=== PATIENT | female | born 1950 | race Two or more races ===

== ENCOUNTER → 2017-04-02 | Outpatient (CLI) | payer MEDICARE, MEDICAID ==
[~2017-04-02] MED LIST: CONTRAST GIVEN MC
[2017-04-02 11:03] LABS: ANION GAP 9 (6-14); BLOOD UREA NITROGEN 9 mg/dL (7-20); CALCIUM 9.4 mg/dL (8.5-10.1); CARBON DIOXIDE 28 mmol/L (21-32); CHLORIDE 103 mmol/L (98-107); CREATININE 0.9 mg/dL (0.6-1.0); GFR 62.3; GLUCOSE 95 mg/dL (70-99); POTASSIUM 3.8 mmol/L (3.5-5.1); SODIUM 140 mmol/L (136-145)
[2017-04-02] MEDS: IOHEXOL 300 MG/ML 100ML VIAL. IV ×2 (11:34)
== END | disposition home or self-care (01) ==
LOC: CT 10:33
DX: I70.0 Atherosclerosis of aorta (principal); K80.20 Calculus of gallbladder without cholecystitis without obstruction; I10 Essential (primary) hypertension; E11.9 Type 2 diabetes mellitus without complications; R91.8 Other nonspecific abnormal finding of lung field
CPT/HCPCS: 36415; 71260; 80048

== ENCOUNTER 2018-02-24 19:50 | Emergency (ER) | payer MEDICARE, OTHER ==
[~2018-02-24] VITALS: Ht 165.1 cm; Wt 68.9 kg
[2018-02-24 20:00] VITALS: BP 157/67
[2018-02-24] MEDS: DEXAMETHASONE SOD PHOS 20 MG/5 ML VIAL. PO ONE (20:26)
[2018-02-24] MEDS ORDERED: CEPH-264 PO (20:48)
--- NOTE | 2018-02-24 20:49 | PHYS DOC ---
Past Medical History Past Medical History: Hypertension Past Surgical History: No Surgical History Alcohol Use: None Drug Use: None Adult General Chief Complaint Chief Complaint: FLU SYMPTOM HPI HPI Patient is a 67 year old [f__sex] who presents with [] Review of Systems Review of Systems Constitutional: Denies fever or chills [] Eyes: Denies change in visual acuity, redness, or eye pain [] HENT: Denies nasal congestion or sore throat [] Respiratory: Denies cough or shortness of breath [] Cardiovascular: No additional information not addressed in HPI [] GI: Denies abdominal pain, nausea, vomiting, bloody stools or diarrhea [] : Denies dysuria or hematuria [] Musculoskeletal: Denies back pain or joint pain [] Integument: Denies rash or skin lesions [] Neurologic: Denies headache, focal weakness or sensory changes [] Endocrine: Denies polyuria or polydipsia [] All other systems were reviewed and found to be within normal limits, except as documented in this note. Current Medications Current Medications Current Medications Medications (Trade) Dose Ordered Sig/Shaneka Start Time Stop Time Status Last Admin Dose Admin Dexamethasone Sodium Phosphate (Decadron) 10 mg 1X ONCE 02/24/18 20:15 02/24/18 20:16 DC 02/24/18 20:26 10 MG Allergies Allergies Allergies Coded Allergies Type Severity Reaction Last Updated Verified No Known Drug Allergies 07/08/14 No Physical Exam Physical Exam Constitutional: Well developed, well nourished, no acute distress, non-toxic appearance. [] HENT: Normocephalic, atraumatic, bilateral external ears normal, oropharynx moist, no oral exudates, nose normal. [] Eyes: PERRLA, EOMI, conjunctiva normal, no discharge. [] Neck: Normal range of motion, no tenderness, supple, no stridor. [] Cardiovascular:Heart rate regular rhythm, no murmur [] Lungs & Thorax: Bilateral breath sounds clear to auscultation [] Abdomen: Bowel sounds normal, soft, no tenderness, no masses, no pulsatile masses. [] Skin: Warm, dry, no erythema, no rash. [] Back: No tenderness, no CVA tenderness. [] Extremities: No tenderness, no cyanosis, no clubbing, ROM intact, no edema. [] Neurologic: Alert and oriented X 3, normal motor function, normal sensory function, no focal deficits noted. [] Psychologic: Affect normal, judgement normal, mood normal. [] Current Patient Data Vital Signs Vital Signs Date Time Temp Pulse Resp B/P (MAP) Pulse Ox O2 Delivery O2 Flow Rate FiO2 02/24/18 20:00 98.6 103 20 157/67 (97) 96 Room Air 98.6 EKG EKG [] Radiology/Procedures Radiology/Procedures [] Course & Med Decision Making Course & Med Decision Making Pertinent Labs and Imaging studies reviewed. (See chart for details) [] Dragon Disclaimer Dragon Disclaimer This electronic medical record was generated, in whole or in part, using a voice recognition dictation system. Departure Departure Impression: Primary Impression: Pharyngitis Disposition: HOME, SELF-CARE Condition: STABLE Referrals: CASSANDRA BILLS MD (PCP) Patient Instructions: Viral and Bacterial Pharyngitis Additional Instructions: Take the medication as directed. Continue to take ibuprofen or Tylenol for pain or fever. Follow-up with your primary care provider in 4 days if not improving or return to the emergency department if worsening. Scripts Cephalexin (KEFLEX) 500 Mg Capsule 1 CAP PO TID for pharyngitis, #30 CAP Prov: BEATRIS MENDOZA APRN 02/24/18 BEATRIS MENDOZA APRN Feb 24, 2018 20:49
== END 2018-02-24 20:50 | disposition home or self-care (01) ==
LOC: ER 19:50
DX: J02.9 Acute pharyngitis, unspecified (principal); I10 Essential (primary) hypertension
CPT/HCPCS: 87070; 87880; 99283; J1100

== ENCOUNTER → 2018-11-17 | Outpatient (CLI) | payer MEDICARE, MEDICAID ==
[~2018-11-17] MED LIST changes: +CEPH-264 PO; -CONTRAST GIVEN MC
--- NOTE | 2018-11-17 14:06 | RAD ---
DATE: 11/17/2018 EXAM: MAMMO NABEEL SCREENING BILATERAL HISTORY: Asymptomatic screening mammogram. COMPARISON: 12/12/2016, 08/02/2015 This study was interpreted with the benefit of Computerized Aided Detection (CAD). Breast Density: SCATTERED The breast parenchyma shows scattered fibroglandular densities. Breast parenchyma level B. FINDINGS: Bilateral CC and MLO views of the breasts were performed. Bilateral breast tomosynthesis was performed in CC and MLO projections. Right breast: There are no suspicious microcalcifications, masses or areas of architectural distortion. Left breast: There are no suspicious microcalcifications, masses or areas of architectural distortion. Findings are stable from prior mammogram. IMPRESSION: Negative bilateral mammogram. BI-RADS CATEGORY: 1 NEGATIVE RECOMMENDED FOLLOW-UP: 12M 12 MONTH FOLLOW-UP PQRS compliance statement: Patient information was entered into a reminder system with a target due date 11/18/2019 for the next mammogram. Mammography is a sensitive method for finding small breast cancers, but it does not detect them all and is not a substitute for careful clinical examination. A negative mammogram does not negate a clinically suspicious finding and should not result in delay in biopsying a clinically suspicious abnormality. "Our facility is accredited by the [employer] Mammography Program."
== END | disposition home or self-care (01) ==
LOC: MAMMO 09:54
PROVIDERS: ATTEND Family Medicine
DX: Z12.31 Encounter for screening mammogram for malignant neoplasm of breast (principal); N64.89 Other specified disorders of breast
CPT/HCPCS: 77063; 77067

== ENCOUNTER 2019-06-26 18:47 | Emergency (ER) | payer MEDICARE, OTHER ==
[~2019-06-26] VITALS: Ht 160 cm; Wt 71.8 kg
[2019-06-26] MEDS ORDERED: IV NORMAL SALINE 1000ML BAG 1,000 ML IV ONE (20:15)
[2019-06-26 20:31] LABS: BASO % 0 % (0-3); EOS % 1 % (0-3); HEMATOCRIT 39.1 % (36.0-47.0); HEMOGLOBIN 13.1 g/dL (12.0-15.5); LYMPH # 2.1 x10^3/uL (1.0-4.8); LYMPH % 28 % (24-48); MEAN CORPUSCULAR HEMOGLOBIN 29 pg (25-35); MEAN CORPUSCULAR HGB CONC 34 g/dL (31-37); MEAN CORPUSCULAR VOLUME 86 fL (79-100); MONO # 0.9 x10^3/uL (0.0-1.1); MONO % 13 % (0-9); NEUT # 4.3 x10^3/uL (1.8-7.7); NEUT % 58 % (31-73); PLATELET COUNT 254 x10^3/uL (140-400); RED BLOOD COUNT 4.57 x10^6/uL (3.50-5.40); RED CELL DISTRIBUTION WIDTH 13.1 % (11.5-14.5); WHITE BLOOD COUNT 7.4 x10^3/uL (4.0-11.0)
[2019-06-26 20:32] LABS: BILIRUBIN,URINE NEGATIVE (NEG); CLARITY,URINE CLEAR; COLOR,URINE YELLOW; NITRITE,URINE NEGATIVE (NEG); PROTEIN,URINE NEGATIVE (NEG-TRACE); UROBILINOGEN,URINE 0.2 mg/dL (0.2 mg/dL)
[2019-06-26 20:37] LABS: RBC,URINE 0 /HPF (0-2); WBC,URINE OCC /HPF (0-4)
[2019-06-26 20:38] LABS: BACTERIA,URINE FEW /HPF (0-FEW); SQUAMOUS EPITHELIAL CELL,UR FEW /LPF
[2019-06-26 20:41] LABS: PROTHROMBIN TIME PATIENT 12.3 SEC (11.7-14.0)
[2019-06-26 20:42] LABS: GFR 54.7; POTASSIUM 4.4 mmol/L (3.5-5.1)
[2019-06-26] MEDS ORDERED: IOHEXOL 300 MG/ML 100ML VIAL. IV ONE (20:45)
[2019-06-26] MEDS ORDERED: CONTRAST GIVEN. MC PRN (20:45)
[2019-06-26 20:48] LABS: ALBUMIN 3.3 g/dL (3.4-5.0); ALBUMIN/GLOBULIN RATIO 0.7 (1.0-1.7); TOTAL BILIRUBIN 0.3 mg/dL (0.2-1.0); TOTAL PROTEIN 7.8 g/dL (6.4-8.2)
[2019-06-26 20:55] LABS: CREATINE KINASE 43 U/L (26-192)
--- NOTE | 2019-06-26 21:18 | RAD ---
EXAM: CT Head without IV contrast INDICATION: Weakness blurred vision and dizziness for 5 days. TECHNIQUE: Multi-detector row CT images were obtained of the head without the use of IV contrast. All CT scans performed at this facility utilize dose optimization techniques as appropriate to the exam, including the following: Automated exposure control and adjustment of the mA and/or KV according to patient size (this includes techniques or standardized protocols for targeted exams where dose is indication/reason for exam). COMPARISON: None FINDINGS: BRAIN PARENCHYMA: No evidence of acute intraparenchymal hemorrhage or infarct. No abnormal parenchymal density or mass. VENTRICLES & EXTRA-AXIAL SPACES: Ventricles are within normal limits. Basilar cisterns are patent. No pathologic extra-axial fluid collection or mass. ORBITS: Orbital contents are unremarkable. SINUSES: Visualized paranasal sinuses and mastoid air cells are clear. OSSEOUS & SOFT TISSUES: Calvarium and skull base are intact. IMPRESSION: No acute intracranial pathology. EXAM: CT Abdomen and Pelvis with IV contrast INDICATION: Pain to lower abdomen TECHNIQUE: Multi-detector row CT images were acquired from the lung bases through the abdomen and pelvis with the use of IV contrast. Sagittal and coronal images were acquired from the transaxial data. All CT scans performed at this facility utilize dose optimization techniques as appropriate to the exam, including the following: Automated exposure control and adjustment of the mA and/or KV according to patient size (this includes techniques or standardized protocols for targeted exams where dose is indication/reason for exam). IV CONTRAST: Administered ORAL CONTRAST: Not administered COMPARISON: Chest CT with IV contrast of 04/02/2017. FINDINGS: LOWER CHEST: Small hiatal hernia LIVER: Unremarkable BILIARY SYSTEM: Gallbladder again shows layering calcifications.. Bile ducts are not dilated. PANCREAS: Unremarkable SPLEEN: Unremarkable ADRENALS: Unremarkable KIDNEYS & URETERS: Unremarkable BLADDER: Unremarkable REPRODUCTIVE ORGANS: A 3 cm right adnexal cyst is noted. Otherwise the reproductive organs are unremarkable. GASTROINTESTINAL: Large bowel shows extensive colonic diverticulosis most conspicuous in the sigmoid colon where apparent wall thickening and pericolonic mesenteric hyperemia is noted. The appendix is normal. MESENTERY/PERITONEUM/RETROPERITONEUM: There is some soft tissue stranding around the draining veins of the rectosigmoid colon extending up to the mid abdomen. VASCULAR: Abdominal aortic calcifications. No aneurysm. LYMPH NODES: No adenopathy OSSEOUS & SOFT TISSUES: Unremarkable IMPRESSION: Findings are suspicious for acute diverticulitis with associated phlebitis of the draining veins of the rectosigmoid colon. No bowel perforation or abscess formation is noted. Cannot exclude infectious or inflammatory thrombophlebitis as a possible complication of acute diverticulitis. Electronically signed by: Shaista Brown MD (06/26/2019 9:15 PM) [facility] [place]
[2019-06-26] MEDS ORDERED: CIPR500T94 PO (22:21)
[2019-06-26] MEDS ORDERED: ONDA4TAB12 PO (22:21)
[2019-06-26] MEDS ORDERED: METR500T PO (22:21)
--- NOTE | 2019-06-26 22:21 | PHYS DOC ---
Past Medical History Past Medical History: Arthritis, High Cholesterol, Hypertension, Hypothyroid Additional Past Medical Histor: PREDIABETES, "HEART PROBLEMS" Past Surgical History: No Surgical History Smoking Status: Former Smoker Alcohol Use: None Drug Use: None General Adult EDM: Chief Complaint: ABDOMINAL PAIN HPI: HPI: Patient is a 69 year old [f__sex] who presents with [] Review of Systems: Review of Systems: Constitutional: Denies fever or chills. [] Eyes: Denies change in visual acuity. [] HENT: Denies nasal congestion or sore throat. [] Respiratory: Denies cough or shortness of breath. [] Cardiovascular: Denies chest pain or edema. [] GI: Denies abdominal pain, nausea, vomiting, bloody stools or diarrhea. [] : Denies dysuria. [] Musculoskeletal: Denies back pain or joint pain. [] Integument: Denies rash. [] Neurologic: Denies headache, focal weakness or sensory changes. [] Endocrine: Denies polyuria or polydipsia. [] Lymphatic: Denies swollen glands. [] Psychiatric: Denies depression or anxiety. [] Heart Score: Risk Factors: Risk Factors: DM, Current or recent (<one month) smoker, HTN, HLP, family history of CAD, obesity. Risk Scores: Score 0 - 3: 2.5% MACE over next 6 weeks - Discharge Home Score 4 - 6: 20.3% MACE over next 6 weeks - Admit for Clinical Observation Score 7 - 10: 72.7% MACE over next 6 weeks - Early Invasive Strategies Current Medications: Current Medications Medications (Trade) Dose Ordered Sig/Shaneka Start Time Stop Time Status Last Admin Dose Admin Info (CONTRAST GIVEN -- Rx MONITORING) 1 each PRN DAILY PRN 06/26/19 20:45 06/28/19 20:44 Iohexol (Omnipaque 300 Mg/ml) 75 ml 1X ONCE 06/26/19 20:45 06/26/19 20:46 DC 06/26/19 20:53 75 ML Sodium Chloride 1,000 ml @ 1,000 mls/hr 1X ONCE 06/26/19 20:15 06/26/19 21:14 DC 06/26/19 21:06 1,000 MLS/HR Allergies: Allergies: Allergies Coded Allergies Type Severity Reaction Last Updated Verified No Known Drug Allergies 07/08/14 No Physical Exam: PE: Constitutional: Well developed, well nourished, no acute distress, non-toxic appearance. [] HENT: Normocephalic, atraumatic, bilateral external ears normal, oropharynx moist, no oral exudates, nose normal. [] Eyes: PERRLA, EOMI, conjunctiva normal, no discharge. [] Neck: Normal range of motion, no tenderness, supple, no stridor. [] Cardiovascular:Heart rate regular rhythm, no murmur [] Lungs & Thorax: Bilateral breath sounds clear to auscultation [] Abdomen: Bowel sounds normal, soft, no tenderness, no masses, no pulsatile masses. [] Skin: Warm, dry, no erythema, no rash. [] Back: No tenderness, no CVA tenderness. [] Extremities: No tenderness, no cyanosis, no clubbing, ROM intact, no edema. [] Neurologic: Alert and oriented X 3, normal motor function, normal sensory function, no focal deficits noted. [] Psychologic: Affect normal, judgement normal, mood normal. [] Current Patient Data: Labs: Laboratory Tests Test 06/26/19 19:22 06/26/19 19:50 Urine Collection Type Unknown Urine Color Yellow Urine Clarity Clear Urine pH 6.0 (<5.0-8.0) Urine Specific [place] 1.010 (1.000-1.030) Urine Protein Negative mg/dL (NEG-TRACE) Urine Glucose (UA) Negative mg/dL (NEG) Urine Ketones (Stick) Negative mg/dL (NEG) Urine Blood Trace (NEG) Urine Nitrite Negative (NEG) Urine Bilirubin Negative (NEG) Urine Urobilinogen Dipstick 0.2 mg/dL (0.2 mg/dL) Urine Leukocyte Esterase Negative (NEG) Urine RBC 0 /HPF (0-2) Urine WBC Occ /HPF (0-4) Urine Squamous Epithelial Cells Few /LPF Urine Bacteria Few /HPF (0-FEW) White Blood Count 7.4 x10^3/uL (4.0-11.0) Red Blood Count 4.57 x10^6/uL (3.50-5.40) Hemoglobin 13.1 g/dL (12.0-15.5) Hematocrit 39.1 % (36.0-47.0) Mean Corpuscular Volume 86 fL (79-100) Mean Corpuscular Hemoglobin 29 pg (25-35) Mean Corpuscular Hemoglobin Concent 34 g/dL (31-37) Red Cell Distribution Width 13.1 % (11.5-14.5) Platelet Count 254 x10^3/uL (140-400) Neutrophils (%) (Auto) 58 % (31-73) Lymphocytes (%) (Auto) 28 % (24-48) Monocytes (%) (Auto) 13 % (0-9) H Eosinophils (%) (Auto) 1 % (0-3) Basophils (%) (Auto) 0 % (0-3) Neutrophils # (Auto) 4.3 x10^3/uL (1.8-7.7) Lymphocytes # (Auto) 2.1 x10^3/uL (1.0-4.8) Monocytes # (Auto) 0.9 x10^3/uL (0.0-1.1) Eosinophils # (Auto) 0.0 x10^3/uL (0.0-0.7) Basophils # (Auto) 0.0 x10^3/uL (0.0-0.2) Prothrombin Time 12.3 SEC (11.7-14.0) Prothrombin Time INR 1.0 (0.8-1.1) Activated Partial Thromboplast Time 24 SEC (24-38) Sodium Level 138 mmol/L (136-145) Potassium Level 4.4 mmol/L (3.5-5.1) Chloride Level 102 mmol/L (98-107) Carbon Dioxide Level 28 mmol/L (21-32) Anion Gap 8 (6-14) Blood Urea Nitrogen 13 mg/dL (7-20) Creatinine 1.0 mg/dL (0.6-1.0) Estimated GFR (Cockcroft-Gault) 54.7 BUN/Creatinine Ratio 13 (6-20) Glucose Level 116 mg/dL (70-99) H Calcium Level 9.0 mg/dL (8.5-10.1) Total Bilirubin 0.3 mg/dL (0.2-1.0) Aspartate Amino Transferase (AST) 43 U/L (15-37) H Alanine Aminotransferase (ALT) 58 U/L (14-59) Alkaline Phosphatase 177 U/L (46-116) H Creatine Kinase 43 U/L (26-192) Creatine Kinase MB (Mass) 1.1 ng/mL (0.0-3.6) Creatine Kinase MB Relative Index % (0-4) Troponin I Quantitative < 0.017 ng/mL (0.000-0.055) Total Protein 7.8 g/dL (6.4-8.2) Albumin 3.3 g/dL (3.4-5.0) L Albumin/Globulin Ratio 0.7 (1.0-1.7) L Lipase 250 U/L (73-393) Laboratory Tests 06/26/19 19:50 Laboratory Tests 06/26/19 19:50 Vital Signs: Vital Signs Date Time Temp Pulse Resp B/P (MAP) Pulse Ox O2 Delivery O2 Flow Rate FiO2 06/26/19 19:39 98.0 80 20 160/74 (102) 98 Room Air 98.0 EKG: EKG: @1956 NSR at 76bpm, NO ST elevation, QRS 70ms, QT/QTc 368/413ms Radiology/Procedures: Radiology/Procedures: [] Course & Med Decision Making: Course & Med Decision Making Pertinent Labs and Imaging studies reviewed. (See chart for details) [] Dragon Disclaimer: Dragon Disclaimer: This electronic medical record was generated, in whole or in part, using a voice recognition dictation system. Departure Departure Impression: Primary Impression: Acute diverticulitis Additional Impression: Weakness Disposition: 01 HOME, SELF-CARE Condition: STABLE Referrals: CASSANDRA BILLS MD (PCP) AVILA LEE MD Patient Instructions: Diverticulitis, Cyza-bu-Hput, Weakness, Qnrq-al-Vydu Scripts Metronidazole (FLAGYL) 500 Mg Tablet 500 MG PO TID for 7 Days, #21 TAB Prov: CASSANDRA ISABEL DO 06/26/19 Ciprofloxacin Hcl (CIPRO) 500 Mg Tablet 1 TAB PO BID for 7 Days, #14 TAB Prov: CASSANDRA ISABEL DO 06/26/19 Ondansetron (ONDANSETRON ODT) 4 Mg Tab.rapdis 1 TAB PO PRN Q6-8HRS PRN for NAUSEA, #16 TAB Prov: CASSANDRA ISABEL DO 06/26/19 CASSANDRA ISABEL DO June 26, 2019 22:21
[2019-06-26 22:30] VITALS: BP 175/77
[2019-06-26] MEDS ORDERED: metroNIDAZOLE 500 MG TABLET PO ONE (22:30)
[2019-06-26] MEDS ORDERED: CIPROFLOXACIN HCL 250 MG TABLET. PO ONE (22:30)
--- NOTE | 2019-06-27 06:54 | EKG ---
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
== END 2019-06-26 22:37 | disposition home or self-care (01) ==
LOC: ER 18:47
DX: K57.92 Diverticulitis of intestine, part unspecified, without perforation or abscess without bleeding (principal); R53.1 Weakness; R51 Headache; E78.00 Pure hypercholesterolemia, unspecified; I10 Essential (primary) hypertension; E03.9 Hypothyroidism, unspecified; Z87.891 Personal history of nicotine dependence
CPT/HCPCS: 36415; 70450; 74177; 80053; 81001; 82553; 83690; 84484; 85025; 85610; 85730; 93005; 99285; J7030; Q9967

== ENCOUNTER → 2019-08-10 | Outpatient (CLI) | payer MEDICARE, OTHER ==
[2019-07-16 11:27] VITALS: BP 115/70
[~2019-08-10] MED LIST changes: +AMOX1TAB11 PO; +CIPR500T94 PO; +LACT1CAP19 PO; +LEVO100T5 PO; +METR500T PO; +ONDA4TAB12 PO
== END | disposition home or self-care (01) ==
LOC: LAB 12:33
PROVIDERS: ATTEND Internal Medicine Gastroenterology
DX: Z01.818 Encounter for other preprocedural examination (principal); Z11.59 Encounter for screening for other viral diseases
CPT/HCPCS: U0003-CS

== ENCOUNTER → 2019-08-15 | Day surgery (SDC) | payer MEDICARE, OTHER ==
[~2019-08-15] MED LIST changes: +IV RINGERS,LACTATED 1000ML 1,000 ML IV SCH
--- NOTE | 2019-08-15 14:35 | PDOC4 ---
PROCEDURE Procedure Colonoscopy/EGD Indications: Chronic heartburn, r/o Terrell's. Screening, no prior; known diverticulosis. Meds; per anesthesia Findings: ALBERTO: normal --Scope advanced ot cecum. Mucosa normal. Numerous diverticula from sigmoid to descending. No polyps, masses, etc. Narrow rectum; could not retroflex, but adequate view of lowermost rectum could be obtained w/o. Small internal hemorrhoids noted. E--Healed, baseline grade indeterminate, reflux at 37 cm. G--Scattered erosions, antrum/prepyloric. Biopsies done. D--Normal to second portion. Daquan. well. IMP: Diverticulosis Internal hemorrhoids. Healed reflux. Antral erosions, non-specific. REC: Resume diet and meds as pre-procedure. Await biopsies. F/u with me in 2 weeks. CASSANDRA WORLEY MD Aug 15, 2019 14:35
[2019-08-15 15:00] VITALS: BP 144/65
--- NOTE | 2019-08-17 17:07 | PATHOLOGY ---
[facility] Accession Number: [id number] . 01 Material submitted: . stomach - ANTRUM BIOPSY . 01 Clinical history: . GERD, diverticulitis hx . 02 Diagnosis: Gastric biopsies, antrum: - Active chronic gastritis, moderate, with Helicobacter organisms identified. (JPM:giuliana; 08/17/2019) S 08/17/2019 1335 Local . 02 Comment: Sections of the gastric antral biopsy show congestion and moderate active chronic inflammation. A properly controlled immunoperoxidase stain for Helicobacter reveals numerous Helicobacter organisms. There is no evidence of malignancy. (JPM:giuliana; 08/17/2019) . . Special stain performed: Immunoperoxidase stain for Helicobacter . 02 Electronically signed: . Misael Carter MD, Pathologist NPI- [id number] . 01 Gross description: . The specimen is received in formalin, labeled "Laly, Stella, BX antrum" consists of 2 fragments of pink-renee tissue measuring 0.3 x 0.3 cm and 0.4 x 0.2 cm which are entirely submitted in A1. (SDY; 08/16/2019) SYU/SYU 08/16/2019 1703 Local . 02 Pathologist provided ICD-10: K29.50, B96.81 . 02 CPT . 746208, [id number] Specimen Comment: A courtesy copy of this report has been sent to [phone], [phone] Specimen Comment: [id number] Specimen Comment: Report sent to / DR BILLS Performed at: 01 [facility] [address], [place], [place] [id number] MD Alec Campa MD Phone: [phone] Performed at: 02 [facility] [address] [place], [place] [id number] MD Misael Carter MD Phone: [phone]
== END | disposition home or self-care (01) ==
LOC: ENDOS 13:25
PROVIDERS: ATTEND Internal Medicine Gastroenterology
DX: Z12.11 Encounter for screening for malignant neoplasm of colon (principal); K21.0 Gastro-esophageal reflux disease with esophagitis; K31.9 Disease of stomach and duodenum, unspecified; I10 Essential (primary) hypertension; E78.00 Pure hypercholesterolemia, unspecified; F41.9 Anxiety disorder, unspecified; F32.9 Major depressive disorder, single episode, unspecified; E78.5 Hyperlipidemia, unspecified; K64.8 Other hemorrhoids; K57.30 Diverticulosis of large intestine without perforation or abscess without bleeding; Z87.891 Personal history of nicotine dependence
CPT/HCPCS: 43239; 88305; 88342; G0121; 45378

== ENCOUNTER → 2019-10-26 | Outpatient (CLI) | payer MEDICARE, OTHER ==
[2019-08-15 15:00] VITALS: BP 144/65
[~2019-10-26] MED LIST changes: +DEXAMETHASONE SOD PHOS 4 MG/ML VIAL ONE; -IV RINGERS,LACTATED 1000ML 1,000 ML IV SCH; +LIDOCAINE 2% PF 5 ML VIAL. ONE; +ONDANSETRON PF 4 MG/2 ML VIAL. ONE; +PROPOFOL 10 MG/ML (20ML) VIAL. IV ONE; +SEVOFLURANE 61 TO 120 MINUTES. IH ONE
--- NOTE | 2019-10-26 11:13 | RAD ---
Examination: 1. Renal ultrasound, complete. 2. Pelvic ultrasound INDICATION: Renal cyst. Right ovarian cyst seen on CT scan. COMPARISON: Abdomen pelvis CT with IV contrast 07/09/2019 TECHNIQUE: Ultrasound of the pelvis was performed transabdominally using grayscale and spectral Doppler imaging using the distended urinary bladder as an acoustic window. Ultrasound of the kidneys was performed transabdominally and included sonographic imaging of the urinary bladder as well. FINDINGS: Renal ultrasound: The right kidney measures 9.9 x 3.0 x 3.4 cm and demonstrates no contour deformity, shadowing stones, or hydronephrosis. Normal blood flow on color Doppler imaging. Left kidney measures 10.4 x 4.3 x 3.6 cm and again demonstrates mild left pelviectasis. No shadowing stones or hydronephrosis. Left renal contour is undulant, suggesting persistent lobulation. No masses identified. Normal blood flow on color Doppler imaging. The visualized urinary bladder is partially distended and shows no filling defects. Pelvic ultrasound: The uterus measures 6.2 x 3.5 x 2.4 cm. The endometrium measures 2 mm. The right ovary measures 4.1 x 3.7 x 2.9 cm and demonstrates normal blood flow. It contains a 2.8 x 2.3 x 2.2 cm cyst. The left ovary is not well seen. No pelvic free fluid or fluid collection. Distended urinary bladder is unremarkable. IMPRESSION: 1. Mild left renal pelviectasis. Otherwise unremarkable complete renal ultrasound. No renal cysts. 2. Persistent right ovarian cyst measuring 2.8 x 2.3 x 2.2 cm showing no complexity or interval change in size. Electronically signed by: Shaista Brown MD (10/26/2019 11:10 AM) [id number]
== END | disposition home or self-care (01) ==
LOC: US 09:11
PROVIDERS: ATTEND Family Medicine
DX: N83.291 Other ovarian cyst, right side (principal); N13.30 Unspecified hydronephrosis; N32.89 Other specified disorders of bladder; I73.9 Peripheral vascular disease, unspecified
CPT/HCPCS: 76770; 76856; J1100; J2405; J2704

== ENCOUNTER → 2019-10-26 | Outpatient (CLI) | payer MEDICARE, OTHER ==
[2019-08-15 15:00] VITALS: BP 144/65
[~2019-10-26] MED LIST changes: -DEXAMETHASONE SOD PHOS 4 MG/ML VIAL ONE; -LIDOCAINE 2% PF 5 ML VIAL. ONE; -ONDANSETRON PF 4 MG/2 ML VIAL. ONE; -PROPOFOL 10 MG/ML (20ML) VIAL. IV ONE; +REGADENOSON 0.4 MG/5 ML DISP.SYRIN. IV ONE; -SEVOFLURANE 61 TO 120 MINUTES. IH ONE
--- NOTE | 2019-10-26 11:54 | RAD ---
MR#: [id number] Date of Study: 10/26/2019 Ordering Physician: LEON ESTEBAN, Referring Physician: LEON ESTEBAN, Tech: Nevaeh Camarillo, DAISY, RVT, RTR APPROVED REPORT Patient Location: OUT-PATIENT Laterality:Bilateral Indications Occlusion and Stenosis of Bilateral Carotid Arteries Risk Factors Hypertension: Hyperlipidemia Doppler Spectral Velocity Analysis Right Left pCCA 93/13 cm/spCCA 110/19 cm/s mCCA 104/17 cm/smCCA 107/16 cm/s dCCA 79/20 cm/sdCCA 69/15 cm/s Bulb 78/14 cm/sBulb 58/15 cm/s ECA 136/14 cm/sECA 106/35 cm/s pICA 80/24 cm/spICA 63/18 cm/s Doyle 104/30 cm/smICA 106/34 cm/s dICA 115/37 cm/sdICA 81/35 cm/s Vert. 44/14 cm/sVert. 53/14 cm/s ICA/CCA 1.11ICA/CCA 0.96 Findings Grayscale images of the bilateral common carotid, external and internal carotid vessels reveals mild diffuse plaque. No significant grayscale obstruction is noted. Based on velocity criteria and spectral waveforms overall 0 to less than 50% stenosis in the internal carotid vessels bilaterally. Vertebral velocities are antegrade. Normal ICA to CCA ratios. Critical Notification Critical Value: No <Conclusion> 1. No significant carotid occlusive disease bilaterally Signed by : Leon Esteban, Electronically Approved : 10/26/2019 11:54:17
--- NOTE | 2019-10-26 11:57 | RAD ---
MR#: [id number] Date of Study: 10/26/2019 Ordering Physician: LEON ESTEBAN, Referring Physician: LEON ESTEBAN, Tech: Nevaeh Camarillo RDMS, RVT, RTR APPROVED REPORT Patient Location: OUT-PATIENT Exam Type: Ankle to Brachial Index Indications PAD Risk Factors History of PAD: Hypertension Hyperlipidemia Pressures/Indices RightABI LeftABI Brachial [id number] [id number] Ankle(PT) 150mmHgAnkle(PT) 96mmHg Ankle(DP) 142mmHgAnkle(DP) 146mmHg Critical Notification Critical Value: No <Conclusion> 1. Normal bilateral MIR. Signed by : Leon Esteban, Electronically Approved : 10/26/2019 11:56:39
--- NOTE | 2019-10-26 11:58 | RAD ---
MR#: [id number] Date of Study: 10/26/2019 Ordering Physician: LEON ESTEBAN, Referring Physician: LEON ESTEBAN, Tech: Nevaeh Camarillo, LARYMS, RVT, RTR APPROVED REPORT Patient Location: OUT-PATIENT Indications PAD Bilateral Leg Cramps Risk Factors Hypertension Hyperlipidemia VELOCITY AND DOPPLER WAVEFORM ANALYSIS RIGHT cm/secWaveformSeverity LEFT cm/secWaveform Severity pCFA 146.9pCFA 123.1 Prof Fem Art. 155.5Prof Fem Art. 83.5 Fem Art Prox. 87.0Fem Art Prox. 120.6 Fem Art Mid. 92.5Fem Art Mid. 85.1 Fem Art Dist. 108.3Fem Art Dist. 65.3 Pop Art(AK) 77.7Pop Art(AK) 76.8 TERMITE HELPER Prox. 59.8PTA Prox. 40.3 TERMITE HELPER Dist. 52.1PTA Dist. 15.0 Per Art Prox. 86.8Per Art Prox. 69.4 VAMSHI Prox. 47.6ATA Prox. 98.3 DPA 68DPA 95 Findings Grayscale images demonstrate mild diffuse plaque bilaterally. There are mostly biphasic waveforms th roughout except the distal left posterior tibial artery has severely diminished waveforms suggestive likely of moderate to severe diffuse disease. Otherwise there is three-vessel runoff bilaterally. N o focal high-grade obstruction evident above the knee. Critical Notification Critical Value: No <Conclusion> 1. No high-grade stenosis above the knee. Three-vessel runoff below the knee bilaterally with likel y severe diffuse disease involving the left posterior tibial artery. Signed by : Leon Esteban, Electronically Approved : 10/26/2019 11:58:06
--- NOTE | 2019-10-26 14:17 | RAD ---
MR#: [id number] Date of Study: 10/26/2019 Ordering Physician: LEON ESTEBAN, Referring Physician: AMBER ELAM Tech: JUANY Oseguera APPROVED REPORT Test Type: Exercise Stress Nurse/Tech: Renae Slater RN Test Indications: Dyspnea on exertion Cardiac History: Hypertension Medications: See Electronic Medical Record Medical History: See Electronic Medical Record Resting ECG: SR with PACs Resting Heart Rate: 95 bpm Resting Blood Pressure: 163/76mmHg Pretest Chest Pain: No chest pain Nurse/Tech Notes S1,S2 and lungs clear to ascultation. Consent: The procedure was explained to the patient in lay terms. Informed consent was witnessed. Goyo eout was entered into [employer]. History and Stress Test performed by JUANY Oseguera Stress Symptoms Dyspnea POST EXERCISE Reason for Termination: Reached target heart rate, Fatigue Target HR: Yes Max HR: 151 bpm 119% of Maximum Predicted HR: 126 bpm Exercise duration: 2:41 min:sec, 1 Stage Exercise capacity: 4.6METs Max Blood Pressure: 199/82mmHg Blood Pressure response to exercise: Normal blood pressure response during stress. Heart Rate response to exercise: WNL Chest Pain: No. Arrhythmia: Yes. PACs ST Change: No. INTERPRETATION Stress EKG Conclusion: Baseline EKG showed sinus rhythm. No ischemic changes at peak stress. No arr hythmias. Imaging Protocol IMAGE PROTOCOL: Rest Tc-99m/stress Tc-99m 1 day Rest: Stress: Viability: Radiopharm.Tc99m SnitbpanvVr67q Sestamibi Fohs43qSg 32mCi Duration 15min. 10min. Img Date 10/26/2019 10/26/2019 Inj-Img Ofoh74zxt. 60min. Rest Admin Site:IV - Right AntecubitalAdministrator:JUANY Oseguera Stress Admin Site: IV - Right AntecubitalAdministrator: RT Tali (R)(N) STRESS DATA End Diast. Vol.34.0mlAv. Heart Aoyg430.0bpm End Syst. Vol.2.0mlCO Index BSA0.0L/min Myocardial Mass80.0gEject. Tblnsqxn83.0% Stress Rates Pk. Fill Rate5.08EDV/secLVtime Pk. Fill 130.75msec Pk. Empty Rate7.45ESV/secLVtime Pk. Uqrsi925.19msec 1/3 Pk. Fill0.70EDV/sec Stress Scores Regional WT0.00Summed WT0.00 Regional WM0.00Summed WM0.00 Study quality was good. Left Ventricular size was Normal at Rest and Stress. Lung uptake was . Left Ventricular ejection fraction is >80%. The rest and stress images show normal perfusion, normal contraction and thickening. LV Perfusion 2 Perfusion Defect Location: anteriorposteriorbasal LV Perf. Quant 17 Seg. SSS0.00 17 Seg. SRS2.00 17 Seg. SDS0.00 Stress Defect Extent (% LAD)0.00Rest Defect Extent (% LAD)5.60Rev. Defect Extent (% LAD)0.00 Stress Defect Extent (% LCX) 0.00Rest Defect Extent (% LCX)0.00Rev. Defect Extent (% LCX)0.00 Stress Defect Extent (% RCA)0.00Rest Defect Extent (% RCA)0.00Rev. Defect Extent (% RCA)0.00 Stress Defect Extent (% MELISSA)0.00Rest Defect Extent (% MELISSA)3.30Rev. Defect Extent (% MELISSA)0.00 Conclusion 1. Treadmill exercise cardioisotope stress test did not show any evidence of ischemia or infarct. 2. Normal left ventricular systolic function with ejection fraction calculated at >80%. 3. Patient had good activity tolerance. Low risk for cardiac events. Signed by : Ken Eastman, Electronically Approved : 10/26/2019 14:16:59
--- NOTE | 2019-10-26 14:19 | CARD ---
MR#: [id number] Date of Study: 10/26/2019 Ordering Physician: LEON ESTEBAN, Referring Physician: LEON ESTEBAN, Tech: Daya Castanon [facility] APPROVED REPORT EXAM: Two-dimensional and M-mode echocardiogram with Doppler and color Doppler. Other Information Quality : Good INDICATION Dyspnea 2D DIMENSIONS Left Atrium(2D)3.1 (1.6-4.0cm)IVSd1.0 (0.7-1.1cm) Aortic Root(2D)2.8 (2.0-3.7cm)LVDd4.1 (3.9-5.9cm) LVOT Diameter2.0 (1.8-2.4cm)PWd1.0 (0.7-1.1cm) LVDs3.5 (2.5-4.0cm)FS (%) 30.0 % SV26.2 mlLVEF(%)60.0 (>50%) Aortic Valve AoV Peak Dioni.153.8cm/sAoV VTI32.7cm AO Peak GR.9.5mmHgLVOT Peak Dioni.147.2cm/s AO Mean GR.6mmHgAVA (VMAX)2.89cm2 MALINDA (VTI)2.80cm2 Mitral Valve MV E Midhysvy588.2cm/sMV DECEL WWRP772uk MV A Mtavkfqk447.7cm/sE/A Ratio0.6 Tricuspid Valve TR P. Dwbymfba955mj/sRAP OKUOJSJZ9jpJy TR Peak Gr.02hjJiULVR88bsSq Pulmonary Vein S1 Yvdnknqj51.5cm/sD2 Hwffdldj50.7cm/s LEFT VENTRICLE The left ventricle is normal size. There is normal left ventricular wall thickness. The left ventricu lar systolic function is normal. The Ejection Fraction is 60-65%. There is normal LV segmental wall m otion. Transmitral Doppler flow pattern is Grade I-abnormal relaxation pattern. RIGHT VENTRICLE The right ventricle is normal size. The right ventricular systolic function is normal. ATRIA The left atrium size is normal. The right atrium size is normal. The interatrial septum is intact wit h no evidence for an atrial septal defect or patent foramen ovale as noted on 2-D or Doppler imaging. AORTIC VALVE The aortic valve is calcified but opens well. Doppler and Color Flow revealed no significant aortic r egurgitation. There is no significant aortic valvular stenosis. MITRAL VALVE The mitral valve is calcified but opens well. There is no evidence of mitral valve prolapse. There is no mitral valve stenosis. Doppler and Color-flow revealed trace mitral regurgitation. TRICUSPID VALVE The tricuspid valve is normal in structure and function. Doppler and Color Flow revealed mild tricusp id regurgitation. There is mild pulmonary hypertension. The PA pressure was estimated at 37 mmHg. The re is no tricuspid valve stenosis. PULMONIC VALVE The pulmonic valve is not well visualized. Doppler and Color Flow revealed trace pulmonic valvular re gurgitation. There is no pulmonic valvular stenosis. GREAT VESSELS The aortic root is normal in size. The ascending aorta is normal in size. The IVC is normal in size a nd collapses <50% with inspiration. PERICARDIAL EFFUSION There is no evidence of significant pericardial effusion. Critical Notification Critical Value: No <Conclusion> The left ventricular systolic function is normal. The Ejection Fraction is 60-65%. There is normal LV segmental wall motion. Transmitral Doppler flow pattern is Grade I-abnormal relaxation pattern. Trace mitral regurgitation. Mild tricuspid regurgitation. The PA pressure was estimated at 37 mmHg. There is no evidence of significant pericardial effusion. Signed by : Ken Eastman, Electronically Approved : 10/26/2019 14:18:41
== END | disposition home or self-care (01) ==
LOC: NM 09:07
PROVIDERS: ATTEND Internal Medicine Cardiovascular Disease
DX: I08.3 Combined rheumatic disorders of mitral, aortic and tricuspid valves (principal); I65.23 Occlusion and stenosis of bilateral carotid arteries; I10 Essential (primary) hypertension; I70.203 Unspecified atherosclerosis of native arteries of extremities, bilateral legs; I27.20 Pulmonary hypertension, unspecified; Z86.79 Personal history of other diseases of the circulatory system
CPT/HCPCS: 78452; 93017; 93306; 93880; 93922; 93925; A9500

== ENCOUNTER 2020-07-13 23:19 | Emergency (ER) | payer MEDICARE, OTHER ==
[~2020-07-13] VITALS: Ht 162.6 cm; Wt 77.2 kg
[~2020-07-13 23:19] MED LIST changes: -REGADENOSON 0.4 MG/5 ML DISP.SYRIN. IV ONE
[2020-07-14] MEDS ORDERED: LABETALOL 20 MG/4 ML DISP.SYRIN. IVP ONE (01:30)
--- NOTE | 2020-07-14 02:07 | RAD ---
EXAM: CT Head without IV contrast CLINICAL HISTORY: Reason: headache, HTN / Spl. Instructions: / History: COMPARISON: 06/26/2019 TECHNIQUE: Routine CT of the head without contrast. PQRS compliance statement - One or more of the following individualized dose reduction techniques wer e utilized for this study: 1. Automated exposure control 2. Adjustment of the mA and/or kV according to patient size 3. Use of iterative reconstruction technique FINDINGS: There is no evidence of hemorrhage, mass or extra-axial fluid collection. Jason-white differentiation is maintained with no evidence of edema. Subcortical and periventricular w karen matter foci of hypoattenuation likely changes of chronic small vessel disease. There is no mass effect or shift of the intracranial structures. The ventricles, basilar cisterns and cortical sulci are normal in size and configuration for the mechelle ents stated age. The cerebellum and brainstem are unremarkable. The calvarium demonstrates no evidence of fracture or focal lesion. There is normal aeration of the visualized paranasal sinuses and mastoid air cells. The visualized portions of the orbits are normal. Atherosclerotic calcifications of the intracranial internal carotid arteries is seen. IMPRESSION: No evidence for acute intracranial process. White matter changes likely chronic small vessel disease. Electronically signed by: Ramses Lock MD (07/14/2020 2:05 AM) [facility]
[2020-07-14 02:25] LABS: BASO % 0 % (0-3); EOS # 0.1 x10^3/uL (0.0-0.7); EOS % 1 % (0-3); HEMATOCRIT 38.4 % (36.0-47.0); HEMOGLOBIN 12.9 g/dL (12.0-15.5); LYMPH # 2.2 x10^3/uL (1.0-4.8); LYMPH % 32 % (24-48); MEAN CORPUSCULAR HEMOGLOBIN 28 pg (25-35); MEAN CORPUSCULAR HGB CONC 34 g/dL (31-37); MEAN CORPUSCULAR VOLUME 83 fL (79-100); MONO # 0.5 x10^3/uL (0.0-1.1); MONO % 8 % (0-9); NEUT # 4.2 x10^3/uL (1.8-7.7); NEUT % 60 % (31-73); PLATELET COUNT 208 x10^3/uL (140-400); RED BLOOD COUNT 4.63 x10^6/uL (3.50-5.40); RED CELL DISTRIBUTION WIDTH 13.4 % (11.5-14.5)
[2020-07-14 02:30] LABS: CALCIUM 9.6 mg/dL (8.5-10.1); CREATININE 0.9 mg/dL (0.6-1.0); GFR 61.5; POTASSIUM 3.9 mmol/L (3.5-5.1)
[2020-07-14 02:36] LABS: ALBUMIN 4.1 g/dL (3.4-5.0); ALBUMIN/GLOBULIN RATIO 1.1 (1.0-1.7); MAGNESIUM 2.1 mg/dL (1.8-2.4); TOTAL BILIRUBIN 0.4 mg/dL (0.2-1.0); TOTAL PROTEIN 7.7 g/dL (6.4-8.2)
--- NOTE | 2020-07-14 02:57 | PHYS DOC ---
Past Medical History Past Medical History: Arthritis, High Cholesterol, Hypertension, Hypothyroid Additional Past Medical Histor: PREDIABETES, "HEART PROBLEMS" Past Surgical History: No Surgical History Smoking Status: Never Smoker Alcohol Use: None Drug Use: None General Adult EDM: Chief Complaint: HYPERTENSION HPI: HPI: Patient is a 70 year old [f__sex] who presents with [] Review of Systems: Review of Systems: Constitutional: Denies fever or chills Eyes: Denies redness or eye pain HENT: Denies nasal congestion or sore throat Respiratory: Denies cough or shortness of breath Cardiovascular: Denies chest pain or palpitations GI: Denies abdominal pain, nausea, or vomiting : Denies dysuria or hematuria Musculoskeletal: Denies back pain or joint pain Integument: Denies rash or skin lesions Neurologic: Reports headache; denies focal weakness or sensory changes Complete systems were reviewed and found to be within normal limits, except as documented in this note. Heart Score: C/O Chest Pain: N/A Current Medications: Current Medications Medications (Trade) Dose Ordered Sig/Shaneka Start Time Stop Time Status Last Admin Dose Admin Labetalol HCl (Normodyne Iv Push) 10 mg 1X ONCE 07/14/20 01:30 07/14/20 01:31 DC 07/14/20 01:53 10 MG Allergies: Allergies: Allergies Coded Allergies Type Severity Reaction Last Updated Verified No Known Drug Allergies 08/15/19 No Physical Exam: PE: Constitutional: Well developed, well nourished, no acute distress, non-toxic appearance HENT: Normocephalic, atraumatic Eyes: PERRL, EOMI, conjunctiva normal, no discharge Neck: Normal range of motion, no tenderness, supple Lungs & Thorax: No respiratory distress, equal chest rise and fall Abdomen: Soft, no tenderness Skin: Warm, dry, no erythema, no rash Back: No tenderness, no CVA tenderness Extremities: No tenderness, ROM intact, no edema Neurologic: Alert and oriented X 3, normal motor function, normal sensory function, no focal deficits noted Psychologic: Affect normal, judgment normal Current Patient Data: Labs: Laboratory Tests Test 07/14/20 01:55 White Blood Count 7.0 x10^3/uL (4.0-11.0) Red Blood Count 4.63 x10^6/uL (3.50-5.40) Hemoglobin 12.9 g/dL (12.0-15.5) Hematocrit 38.4 % (36.0-47.0) Mean Corpuscular Volume 83 fL (79-100) Mean Corpuscular Hemoglobin 28 pg (25-35) Mean Corpuscular Hemoglobin Concent 34 g/dL (31-37) Red Cell Distribution Width 13.4 % (11.5-14.5) Platelet Count 208 x10^3/uL (140-400) Neutrophils (%) (Auto) 60 % (31-73) Lymphocytes (%) (Auto) 32 % (24-48) Monocytes (%) (Auto) 8 % (0-9) Eosinophils (%) (Auto) 1 % (0-3) Basophils (%) (Auto) 0 % (0-3) Neutrophils # (Auto) 4.2 x10^3/uL (1.8-7.7) Lymphocytes # (Auto) 2.2 x10^3/uL (1.0-4.8) Monocytes # (Auto) 0.5 x10^3/uL (0.0-1.1) Eosinophils # (Auto) 0.1 x10^3/uL (0.0-0.7) Basophils # (Auto) 0.0 x10^3/uL (0.0-0.2) Sodium Level 143 mmol/L (136-145) Potassium Level 3.9 mmol/L (3.5-5.1) Chloride Level 106 mmol/L (98-107) Carbon Dioxide Level 31 mmol/L (21-32) Anion Gap 6 (6-14) Blood Urea Nitrogen 12 mg/dL (7-20) Creatinine 0.9 mg/dL (0.6-1.0) Estimated GFR (Cockcroft-Gault) 61.5 BUN/Creatinine Ratio 13 (6-20) Glucose Level 105 mg/dL (70-99) H Calcium Level 9.6 mg/dL (8.5-10.1) Magnesium Level 2.1 mg/dL (1.8-2.4) Total Bilirubin 0.4 mg/dL (0.2-1.0) Aspartate Amino Transferase (AST) 41 U/L (15-37) H Alanine Aminotransferase (ALT) 58 U/L (14-59) Alkaline Phosphatase 106 U/L (46-116) Creatine Kinase 86 U/L (26-192) Creatine Kinase MB (Mass) 1.9 ng/mL (0.0-3.6) Creatine Kinase MB Relative Index 2.2 % (0-4) Troponin I Quantitative < 0.017 ng/mL (0.000-0.055) Total Protein 7.7 g/dL (6.4-8.2) Albumin 4.1 g/dL (3.4-5.0) Albumin/Globulin Ratio 1.1 (1.0-1.7) Laboratory Tests 07/14/20 01:55 Laboratory Tests 07/14/20 01:55 Vital Signs: Vital Signs Date Time Temp Pulse Resp B/P (MAP) Pulse Ox O2 Delivery O2 Flow Rate FiO2 07/14/20 01:53 78 222/98 07/13/20 23:27 97.1 18 98 Room Air 97.1 EKG: EKG: @0212 NSR at 72bpm, NO ST elevation, QRS 74ms, QT/QTc 382/420ms Radiology/Procedures: Radiology/Procedures: PROCEDURE: CT HEAD WO CONTRAST EXAM: CT Head without IV contrast CLINICAL HISTORY: Reason: headache, HTN / Spl. Instructions: / History: COMPARISON: 06/26/2019 TECHNIQUE: Routine CT of the head without contrast. PQRS compliance statement - One or more of the following individualized dose reduction techniques were utilized for this study: 1. Automated exposure control 2. Adjustment of the mA and/or kV according to patient size 3. Use of iterative reconstruction technique FINDINGS: There is no evidence of hemorrhage, mass or extra-axial fluid collection. Jasno-white differentiation is maintained with no evidence of edema. 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 There is no mass effect or shift of the intracranial structures. The ventricles, basilar cisterns and cortical sulci are normal in size and configuration for the patients stated age. The cerebellum and brainstem are unremarkable. The calvarium demonstrates no evidence of fracture or focal lesion. There is normal aeration of the visualized paranasal sinuses and mastoid air cells. The visualized portions of the orbits are normal. Atherosclerotic calcifications of the intracranial internal carotid arteries is seen. IMPRESSION: No evidence for acute intracranial process. White matter changes likely chronic small vessel disease. Electronically signed by: Ramses Lock MD (07/14/2020 2:05 AM) [facility] Course & Med Decision Making: Course & Med Decision Making Pertinent Labs and Imaging studies reviewed. (See chart for details) Patient stable for discharge with outpatient follow-up with PCP. Discussed findings and plan with patient and family, who acknowledge understanding and agreement. Dragon Disclaimer: Dragon Disclaimer: This electronic medical record was generated, in whole or in part, using a voice recognition dictation system. Departure Departure Impression: Primary Impression: Hypertension Qualified Codes: I10 - Essential (primary) hypertension Additional Impression: Headache Qualified Codes: R51.9 - Headache, unspecified Disposition: HOME / SELF CARE / HOMELESS Condition: STABLE Referrals: CASSANDRA BILLS MD (PCP) Patient Instructions: Headache, FAQs, Hypertension, Ehik-kk-Ehfv Additional Instructions: Please follow closely with your family doctor for adjustment of your blood pressure medications. Scripts Clonidine Hcl (CLONIDINE HCL) 0.1 Mg Tablet 0.1 MG PO BID PRN for ELEVATED BP, SEE COMMENTS, #14 TAB Take for systolic (upper) blood pressure >175 and/or diastolic (lower) blood pressure > 105. Prov: CASSANDRA ISABEL DO 07/14/20 CASSANDRA ISABEL DO Jul 14, 2020 02:57
[2020-07-14] MEDS ORDERED: CLON0.1T PO (03:01)
[2020-07-14] MEDS ORDERED: hydrALAZINE 20 MG/ML VIAL. IVP ONE (03:30)
[2020-07-14] MEDS ORDERED: cloNIDine HCL 0.1 MG TABLET PO ONE (03:30)
[2020-07-14 03:53] VITALS: BP 163/72
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
== END 2020-07-14 04:07 | disposition home or self-care (01) ==
LOC: ER 23:19
DX: I10 Essential (primary) hypertension (principal); R51.9 Headache, unspecified; E78.00 Pure hypercholesterolemia, unspecified; E03.9 Hypothyroidism, unspecified
CPT/HCPCS: 36415; 70450; 80053; 82553; 83735; 84484; 85025; 93005; 96374; 96375; 99285; J0360; J3490